=== PATIENT | male | born 1945 | race Caucasian/White ===

== ENCOUNTER 2018-09-29 17:55 | Emergency (ER) | payer MEDICARE, OTHER ==
[2018-09-29] MEDS ORDERED: Meclizine 25 MG Tab PO ONE (18:30)
[2018-09-29] MEDS ORDERED: Ondansetron 4 MG Tab.DIS PO ONE (18:30)
--- NOTE | 2018-09-29 18:34 | EDM.PDOC ---
ED HPI GENERAL MEDICAL PROBLEM - General Chief Complaint: Neurological Problem Stated Complaint: DIZZY, VOMITING Time Seen by Provider: 09/29/18 18:19 Source of Information: Reports: Patient, Family, RN Notes Reviewed History Limitations: Reports: No Limitations - History of Present Illness INITIAL COMMENTS - FREE TEXT/NARRATIVE: 9-year-old gentleman presents to emergency department today complaint of dizziness, he states it started at 4:00 this morning when he got up to go to the bathroom sudden onset of dizziness with nausea and vomiting he feels better when he lays down worse when he is up standing he feels unstable on his feet with difficulty walking. 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 I counseled him on my concern for posterior stroke however he is reluctant due to financial concerns of proceeding with any further investigation such as CTA - Related Data Allergies Allergy/AdvReac Type Severity Reaction Status Date / Time No Known Allergies Allergy Verified 09/29/18 18:05 Home Meds: Home Meds *Semaglutide 1 mg SUBCUT WEEKLY 09/29/18 [History] Benazepril/Hydrochlorothiazide [Lotensin Hct 20-25 mg Tablet] 1 each PO BID [History] Fluticasone Propionate [24 Hour Allergy Relief] 15.8 ml NS DAILY 09/29/18 [ History] Glimepiride [Amaryl] 4 mg PO DAILY 09/29/18 [History] Ranitidine HCl [Ranitidine] 150 mg PO BID 09/29/18 [History] Sertraline [Zoloft] 50 mg PO DAILY 09/29/18 [History] amLODIPine [Norvasc] 5 mg PO DAILY 09/29/18 [History] atorvaSTATin Calcium [Atorvastatin Calcium] 40 mg PO BEDTIME 09/29/18 [History] metFORMIN [Glucophage] 1,000 - 1,500 mg PO BIDMEALS 09/29/18 [History] Past Medical History HEENT History: Reports: Hard of Hearing, Impaired Vision Cardiovascular History: Reports: High Cholesterol, Hypertension Neurological History: Reports: Concussion, CVA Psychiatric History: Reports: Anxiety Endocrine/Metabolic History: Reports: Diabetes, Type II Dermatologic History: Reports: Eczema, Psoriasis Social & Family History - Tobacco Use Smoking Status *Q: Never Smoker - Recreational Drug Use Recreational Drug Use: No ED ROS GENERAL - Review of Systems Review Of Systems: See Below Constitutional: Reports: No Symptoms HEENT: Reports: No Symptoms, Vertigo Respiratory: Reports: No Symptoms Cardiovascular: Reports: No Symptoms GI/Abdominal: Reports: Nausea, Vomiting : Reports: No Symptoms Musculoskeletal: Reports: No Symptoms Skin: Reports: No Symptoms Neurological: Reports: Dizziness ED EXAM, DIZZINESS - Physical Exam Exam: See Below Text/Narrative:: General: Male, not in any distress, alert and oriented x3 HEENT: head is atraumatic normocephalic, eyes pupils equal round reactive to light, sclera clear no conjunctivitis appreciated, extraocular eye movements intact. Ears tympanic membranes clear and encarnacion landmarks and light reflex are present bilaterally canals are clear. Nose no septal deviation, nares are clear, no blood present. Mouth mucosa is moist and pink no erythema or exudate noted in soft palate, tongue is midline uvula is midline, dentition is intact. Neck: Supple no thyromegaly no tracheal deviation. Nodes: Cervical nodes subclavicular nodes nontender no palpable lymphadenopathy noted. Lungs: clear to auscultation bilaterally with symmetrical respirations, no adventitious noise appreciated. CV: Regular rate and rhythm S1 and S2 appreciated no murmurs rubs or gallops noted. Abdomen: Soft, nontender, no palpable masses or organomegaly appreciated, no distention no guarding bowel sounds are present, . Head impulse test: Negative loss of fixation with corrective saccades when head turned to the bilateral Nystagmus: unidirectional, horizontal [3]-beating nystagmus Skew deviation: grossly absent Neuro: Cranial nerves II test with pupillary light reflex 4 mm to 2 mm bilaterally, CN III test pupillary constriction, limited elevation and eye abduction bilaterally, CN IV downward movement of eyes bilaterally, CN V good jaw movement, CN lateral deviation of the eyes bilaterally to finger movement , CN VII symmetrical smile shows teeth without difficulty, CN VIII pass finger rub to ears bilaterally, CN IX adequate voice and tone, CN X adequate voice and tone no difficulty swallowing, CN XI can shrug shoulders without difficulty, CN XII can stick tongue out without difficulty, cranial nerves II to XII intact as tested, will not tolerate sitting up or further neurologic exam. Power is 5 x 5 in upper and lower extremities Skin: Warm and dry, intact Extremities: No lower extremity edema appreciated, pedal pulse is +2. Course - Vital Signs Last Recorded V/S: Last Vital Signs Temp 96.9 F 09/29/18 21:06 Pulse 65 09/29/18 21:06 Resp 18 09/29/18 21:06 BP 135/75 09/29/18 21:06 Pulse Ox 96 09/29/18 21:06 - Orders/Labs/Meds Orders: Active Orders 24 hr Category Date Time Status Iopamidol [Isovue-370 (76%)] Med 09/29/18 19:15 Active 100 ml IV . DIRECTED Sodium Chloride 0.9% [Normal Saline] 1,000 ml Med 09/29/18 21:15 Active IV ASDIRECTED Sodium Chloride 0.9% [Normal Saline] 100 ml Med 09/29/18 19:15 Active IV ASDIRECTED Medication Orders Sodium Chloride (Normal Saline) 100 mls @ 0 mls/hr IV ASDIRECTED SALLIE Last Admin: 09/29/18 19:50 Dose: 4 mls/hr Sodium Chloride (Normal Saline) 1,000 mls @ 999 mls/hr IV ASDIRECTED SALLIE Last Admin: 09/29/18 21:04 Dose: 999 mls/hr Iopamidol (Isovue-370 (76%)) 100 ml IV . DIRECTED SALLIE Last Admin: 09/29/18 19:49 Dose: 100 ml Labs: Laboratory Tests 09/29/18 09/29/18 09/29/18 Range/Units 18:40 18:40 18:40 WBC 8.8 (4.5-11.0) K/uL RBC 4.28 L (4.30-5.90) M/uL Hgb 12.7 (12.0-15.0) g/dL Hct 36.8 L (40.0-54.0) % MCV 86 (80-98) fL MCH 30 (27-31) pg MCHC 35 (32-36) % Plt Count 266 (150-400) K/uL Neut % (Auto) 85 H (36-66) % Lymph % (Auto) 9 L (24-44) % Coos % (Auto) 5 (2-6) % Eos % (Auto) 1 L (2-4) % Baso % (Auto) 0 (0-1) % PT 10.7 (9.5-12.0) sec INR 0.97 (0.80-1.20) Sodium 141 (140-148) mmol/L Potassium 3.7 (3.6-5.2) mmol/L Chloride 104 (100-108) mmol/L Carbon Dioxide 27 (21-32) mmol/L Anion Gap 10.5 (5.0-14.0) mmol/L BUN 25 H (7-18) mg/dL Creatinine 1.6 H (0.8-1.3) mg/dL Est Cr Clr Drug Dosing 47.15 mL/min Estimated GFR (MDRD) 43 L (>60) Glucose 152 H (74-106) mg/dL Calcium 9.3 (8.5-10.1) mg/dL Total Bilirubin 0.6 (0.2-1.0) mg/dL AST 20 (15-37) U/L ALT 32 (12-78) U/L Alkaline Phosphatase 72 (46-116) U/L Total Protein 6.9 (6.4-8.2) g/dL Albumin 3.6 (3.4-5.0) g/dL Globulin 3.3 (2.3-3.5) g/dL Albumin/Globulin Ratio 1.1 L (1.2-2.2) Meds: Medications Generic Name Dose Route Start Last Admin Trade Name Freq PRN Reason Stop Dose Admin Sodium Chloride 100 mls @ 0 mls/hr 09/29/18 19:15 09/29/18 19:50 Normal Saline IV 4 mls/hr ASDIRECTED SALLIE Administration KVO Sodium Chloride 1,000 mls @ 999 mls/hr 09/29/18 21:15 09/29/18 21:04 Normal Saline IV 999 mls/hr ASDIRECTED SALLIE Administration Iopamidol 100 ml 09/29/18 19:15 09/29/18 19:49 Isovue-370 (76%) IV 100 ml . DIRECTED SALLIE Administration Discontinued Medications Generic Name Dose Route Start Last Admin Trade Name Freq PRN Reason Stop Dose Admin Lorazepam 0.5 mg 09/29/18 20:23 09/29/18 20:58 Ativan IVPUSH 09/29/18 20:24 0.5 mg ONETIME ONE Administration Meclizine HCl 25 mg 09/29/18 18:30 09/29/18 18:37 Antivert PO 09/29/18 18:31 25 mg ONETIME ONE Administration Ondansetron HCl 4 mg 09/29/18 18:30 09/29/18 18:37 Zofran Odt PO 09/29/18 18:31 4 mg ONETIME ONE Administration Sodium Chloride 10 ml 09/29/18 19:14 09/29/18 19:49 Saline Flush FLUSH 09/29/18 19:15 10 ml ONETIME ONE Administration - Re-Assessments/Exams Free Text/Narrative Re-Assessment/Exam: 09/29/18 20:24 Initial treatment of Zofran and meclizine as well as CTA which shows no occlusion however he feels fine laying down standing up he still gets nauseated with the dizziness has resolved, we will try Ativan for nausea and vomiting 09/29/18 22:04 After Ativan was given he was able to stand and ambulate without any nausea vomiting still felt unstable on his feet but improved Departure - Departure Time of Disposition: 22:03 Disposition: Home, Self-Care 01 Condition: Fair Clinical Impression: Vertigo - Discharge Information Instructions: Vertigo, [id number] Referrals: PCP,None [Primary Care Provider] - Forms: ED Department Discharge Additional Instructions: Use Zofran as needed for nausea and vomiting symptoms, use Ativan as needed for dizzy symptoms, Please followup with your primary care provider in 3-5 days if not better, please call return to the emergency department with worsening of symptoms. - My Orders Last 24 Hours: My Active Orders 09/29/18 19:15 Iopamidol [Isovue-370 (76%)] 100 ml IV . DIRECTED Sodium Chloride 0.9% [Normal Saline] 100 ml IV ASDIRECTED 09/29/18 21:15 Sodium Chloride 0.9% [Normal Saline] 1,000 ml IV ASDIRECTED - Assessment/Plan Last 24 Hours: My Active Orders 09/29/18 19:15 Iopamidol [Isovue-370 (76%)] 100 ml IV . DIRECTED Sodium Chloride 0.9% [Normal Saline] 100 ml IV ASDIRECTED 09/29/18 21:15 Sodium Chloride 0.9% [Normal Saline] 1,000 ml IV ASDIRECTED Plan: Assessment Acuity = acute Site and laterality = vertigo Etiology = unclear etiology Manifestations = nausea and vomiting now resolved Location of injury = Home Lab values = CBC unremarkable creatinine elevated 1.6 consistent chronic renal failure stage G IIIB CTA of the head shows no infarction or stenosis Plan He had good improvement combination Zofran, Ativan and meclizine plan is discharge home Zofran 4 mg ODT 1 tab by mouth 3 times a day when necessary: 15 as well as Ativan 1 mg by mouth 3 times a day when necessary total #10 and follow-up primary care 3-5 days if no improvement This note was dictated using [employer] voice recognition software please call with any questions on syntax or grammar.
[2018-09-29] MEDS ORDERED: Sodium Chloride 0.9% 100 ML IV SCH (19:15)
[2018-09-29] MEDS ORDERED: Iopamidol 755 Mg/ML 100 ML Bottle IV SCH (19:15)
[2018-09-29] MEDS: Sodium Chloride 0.9% 10 ML Syringe FLUSH ONE ×2 (19:23→19:49)
--- NOTE | 2018-09-29 20:05 | CRLCT ---
INDICATION: Difficulty walking, dizziness. TECHNIQUE: High resolution axial CT images acquired through the head following rapid intravenous administration of iodinated contrast. Multiplanar MIPS of cranial vasculature performed. FINDINGS: There is scattered intracranial atherosclerotic disease. However, there is normal filling of the intracranial vasculature; i.e. there is no large vessel occlusion or significant intracranial stenosis. There is no cerebral aneurysm or evidence for vascular malformation. The underlying brain parenchyma demonstrates volume loss and nonspecific white matter hypoattenuation commonly seen with chronic small vessel disease. IMPRESSION: Scattered atherosclerotic disease without significant stenosis or large vessel occlusion. Nonspecific white matter hypodensities commonly seen with cerebral small vessel disease. Bj Ochoa MD [facility] [facility] Please note that all CT scans at this facility use dose modulation, iterative reconstruction, and/or weight-based dosing when appropriate to reduce radiation dose to as low as reasonably achievable. Dictated by Bj Ochoa MD @ Sep 30 2018 11:12AM Signed by Dr. Bj Ochoa @ Sep 30 2018 11:14AM
[2018-09-29] MEDS ORDERED: LORazepam 2 MG/ML SDV IVPUSH ONE (20:23)
[2018-09-29] MEDS ORDERED: Sodium Chloride 0.9% 1,000 ML IV SCH (21:15)
== END 2018-09-29 22:33 | disposition home or self-care (01) ==
LOC: JP.ED 17:55
DX: R42 Dizziness and giddiness (principal); E78.00 Pure hypercholesterolemia, unspecified; R11.2 Nausea with vomiting, unspecified; I10 Essential (primary) hypertension; E11.9 Type 2 diabetes mellitus without complications; Z79.899 Other long term (current) drug therapy; Z79.84 Long term (current) use of oral hypoglycemic drugs; Z86.73 Personal history of transient ischemic attack (TIA), and cerebral infarction without residual deficits
CPT/HCPCS: 36415; 70496; 80053; 85025; 85610; 96361; 96374; 99284; A9270; J2060; J7030; Q9967

== ENCOUNTER 2025-02-10 14:57 | Emergency (ER) | payer MEDICARE ==
[2025-02-10] MEDS: Ketorolac 30 MG/ML SDV IM ONE (15:50)
[2025-02-10] MEDS: Ondansetron 4 MG Tab.DIS PO ONE (15:52)
[2025-02-10 16:43] LABS: APPEARANCE,URINE CLEAR (CLEAR); GLUCOSE,URINE 500 mg/dL (NEGATIVE); OCCULT BLOOD,URINE TRACE-INTACT (NEGATIVE)
[2025-02-10 16:57] LABS: SQUAMOUS EPITHELIAL CELLS,UR RARE /HPF; UROTHELIAL CELLS,URINE NOT SEEN /HPF
== END 2025-02-10 17:03 | disposition home or self-care (01) ==
LOC: JP.ED 14:57
DX: N13.2 Hydronephrosis with renal and ureteral calculous obstruction (principal); I10 Essential (primary) hypertension; E78.00 Pure hypercholesterolemia, unspecified; E11.9 Type 2 diabetes mellitus without complications; F17.200 Nicotine dependence, unspecified, uncomplicated; Z86.73 Personal history of transient ischemic attack (TIA), and cerebral infarction without residual deficits; Z79.899 Other long term (current) drug therapy; Z79.84 Long term (current) use of oral hypoglycemic drugs
CPT/HCPCS: 74176; 81001; 96372; 99284; Q0162; J1885